=== PATIENT | female | born 1960 | race Caucasian/White ===

== ENCOUNTER 2018-09-02 08:53 | Day surgery (SDC) | payer OTHER ==
[2018-08-29 18:05] VITALS: BMI 21.1
[2018-09-02] MEDS ORDERED: PROPOFOL 20 ML ONE ×2 (09:17)
[2018-09-02 09:20] VITALS: TEMP 97.4
[2018-09-02 10:43] VITALS: BP 102/68; PULSE 64
== END 2018-09-02 10:45 | disposition home or self-care (01) ==
LOC: FASU-ENDO 08:53
PROVIDERS: ATTEND Internal Medicine Gastroenterology
PROC: 0DJD8ZZ Inspection of Lower Intestinal Tract, Via Natural or Artificial Opening Endoscopic (ICD-10-PCS; principal; 2018-09-02 09:30)
DX: Z12.11 Encounter for screening for malignant neoplasm of colon (principal); Z80.0 Family history of malignant neoplasm of digestive organs